=== PATIENT | female | born 1970 | race Caucasian/White ===

== ENCOUNTER 2018-10-25 16:01 | Emergency (ER) | payer SELFPAY ==
[~2018-10-25] VITALS: Ht 165.1 cm; Wt 94.3 kg
[~2018-10-25 16:01] MED LIST: CEPH500C PO; HYDR-4011 PO
[2018-10-25 16:07] VITALS: Ht 165.1 cm; Wt 94.3 kg
--- NOTE | 2018-10-25 16:44 | EN ---
Date/Time of Note Date/Time of Note DATE: 10/25/18 TIME: 16:43 ER Progress Note [id number]-old female with worsening left second metacarpal phalangeal joint pain for the last month. Denies acute injury. Now with more redness and pain. X-ray ordered. May need laboratory evaluation. ed2 appropriate. LUCIANA RICHTER MD Oct 25, 2018 16:44
[2018-10-25] MEDS ORDERED: NAPR-985 PO (18:50)
[2018-10-25 20:10] VITALS: BP 188/91; PULSE 56; RESP 16
--- NOTE | 2018-10-25 20:41 | ERD ---
ER Documentation Chief Complaint Chief Complaint lt hand pain x 6 months , pain worse with swelling x few days HPI 47-year-old female otherwise healthy presents to the emergency department complaining of left hand pain over the second MCP joint intermittently for the past 6 months but worsening over the past 3 days. She states she works with her hands a lot at work which may have caused her symptoms. She reports moderate to severe pain which is worse with movement of the hand. She tried bbds-[id number] medication without significant relief. She denies any falls or other symptoms or injuries at this time. ROS All systems reviewed and are negative except as per history of present illness. Medications Home Meds Active Scripts Naproxen* (Naprosyn*) 500 Mg Tablet, 500 MG PO BID PRN for PAIN AND/OR INFLAMMATION, #30 TAB Prov:ANDREA MARRERO PA-C 10/25/18 Hydrocodone/Acetaminophen ([place] 5-325 Tablet) 1 Each Tablet, 1 EACH PO Q4H WHILE AWAKE for PAIN, #30 TAB Prov:DANIEL,MALICK V. PROGRAM ARRANGER 11/29/15 Cephalexin* (Cephalexin*) 500 Mg Capsule, 500 MG PO QID, #28 CAP Prov:DANIEL,MALICK V. PROGRAM ARRANGER 11/29/15 Allergies Allergies: Coded Allergies: No Known Allergies (Verified Allergy, Unknown, 09/09/12) PMhx/Soc History of Surgery: Yes ( X1,APPENDECTOMY) Anesthesia Reaction: No Hx Neurological Disorder: No Hx Respiratory Disorders: No Hx Cardiac Disorders: No Hx Psychiatric Problems: No Hx Miscellaneous Medical Probl: No Hx Alcohol Use: No Hx Substance Use: No Hx Tobacco Use: No Smoking Status: Never smoker FmHx Family History: No diabetes Physical Exam Vitals Vital Signs Date Temp Pulse Resp B/P (MAP) Pulse Ox O2 O2 Flow FiO2 Time Delivery Rate 10/25/18 56 16 188/91 100 Room Air 20:10 (123) 10/25/18 97.6 67 18 139/63 97 16:07 (88) Physical Exam Const: No acute distress Head: Atraumatic Eyes: Normal Conjunctiva ENT: Normal External Ears, Nose and Mouth. Neck: Full range of motion. No meningismus. Resp: No respiratory distress. Skin: No petechiae or rashes Ext: Tenderness palpation and mild edema noted over the second MCP joint of the left hand. Limited range of motion of the second finger on the left hand secondary to pain. No obvious deformity or open fractures noted. Patient is neurovascularly intact to the left hand. Neur: Awake and alert Psych: Normal Mood and Affect Results 24 hrs [place] [address] Radiology Main Line: [phone] DIAGNOSTIC IMAGING REPORT Patient: TARAH BELLE : 1970 Age: 47 Sex: F MR #: [id number] DOS: 10/25/18 1643 Ordering MD: LUCINAA RICHTER MD Location: [facility] Room/Bed: PROCEDURE: Left hand x-ray CLINICAL INDICATION: pain TECHNIQUE: AP, lateral and oblique views of the left hand were obtained. COMPARISON: None FINDINGS: Second metacarpal ossicles are noted. On the lateral view, there is irregular contour to the ossicles compatible with acute displaced fracture. The joint spaces are well maintained. Soft tissue swelling about the base of the second digit. IMPRESSION: 1. Acute, displaced fracture of 2nd metacarpal ossicle. Surrounding soft tissue swelling. RPTAT: HH Physician Junior Date Time Electronically viewed and signed by Physician Junior on 10/25/2018 18:14 RP/ CC: LUCIANA RICHTER MD [id number] Procedures/MDM 47 old female presents the emergency department with complaints of left hand. X-ray was notable for fracture over the second MCP joint. Patient required splinting for immobilization of fracture.Splint Assessment: Neurovascularly intact post splint placement with good fit. Patient's extremity symptoms have stabilized while they have been evaluated in the department and are appropriate for outpatient follow up. No evidence of compartment syndrome, neurologic injury, vascular injury, open joint, open fracture, tendon laceration, or foreign body. Patient advised to have 24 to 48-hour follow-up with orthopedic physician and primary care physician. She was advised to return here immediately for any new or worsening or concerning symptoms. She was in agreement with the diagnosis, plan, need for follow-up, return precautions. Patient's blood pressure was elevated (>120/80) but appears stable without evidence of hypertension emergency or urgency. The patient is to follow-up and pursue outpatient monitoring and therapy with their primary care physician within 1 week and return immediately if they have any new, worsening, or dwight rning symptoms. Departure Diagnosis: Primary Impression: Left hand fracture Encounter type: initial encounter Fracture type: closed Qualified Codes: S62.92XA - Unspecified fracture of left wrist and hand, initial encounter for closed fracture Condition: Fair Patient Instructions: Treating Hand Fractures [facility] Usted se rashid hecho un examen mdico de control que le indica que no est en francis condicin que requiera tratamiento urgente en el Departamento de Emergencia. Un estudio ms profundo y el tratamiento de epstein condicin pueden esperar sin ningn riesgo hasta que usted sea atendida/o en el consultorio de epstein mdico o francis clnica. Es responsabilidad suya arreglar francis jennifer para el seguimiento del lázaro. MANEJO DE CONDICIONES NO URGENTES EN EL FUTURO 1) Si usted tiene un mdico de atencin primaria: Usted debera llamar a epstein mdico de atencin primaria antes de venir al departamento de emergencia. Despus de las horas de consultorio, epstein doctor o epstein asociado/a est disponible por telfono. El mdico o enfermero de mushtaq en el servicio telefnico puede asesorarle por giorgi medio para atender el problema, o lázaro contrario se puede programar francis jennifer. 2) Si usted no tiene un mdico de atencin primaria: Llame al mdico o clnica de referencia que aparece abajo mickie las horas de consultorio para hacer francis jennifer para que le vean. CLINICAS: [facility] [phone] [facility] [phone] [facility] [phone] [place] [id number] [phone] [facility] [phone] [address] [facility] [phone] [facility] Urgent Care 7 a.m.- 11 p.m. Every Day of the Week NO APPOINTMENT OR AUTHORIZATION NEEDED [facility] Hours: Mon-Wed 9:00 AM - 5:00 PM Additional Instructions: Specialist:Usted tiene francis condicin mdica que requiere que smita a un especialista dentro de los prximos 1-2 corbin.POR FAVOR,CON EPSTEIN SEGUIMIENTO DE PRIMARIA PHSICIAN refferal. SI USTED NO TIENE UN MDICO GENERAL Y / O USTED NO PUEDE PAGAR john a un mdico,los siguientes linares RECURSOS sido suministrado a usted. ES EPSTEIN RESPONSABILIDAD PARA SER VISTOS POR EL ESPECIALISTA: ORTHOPEDICS ANDREA MARRERO PA-C Oct 25, 2018 20:41
== END 2018-10-25 20:11 | disposition home or self-care (01) ==
LOC: FTE 16:01
DX: S62.301A Unspecified fracture of second metacarpal bone, left hand, initial encounter for closed fracture (principal); X58.XXXA Exposure to other specified factors, initial encounter; Y92.89 Other specified places as the place of occurrence of the external cause